=== PATIENT | female | born 1945 | race Caucasian/White ===

== ENCOUNTER 2019-04-18 18:27 | Inpatient (IN) | payer MEDICARE, BC, SELFPAY ==
[2019-04-18] VITALS (18 sets, daily range): BP systolic 109–210; BP diastolic 53–86; PULSE 75–133; RESP 14–40; TEMP 36–36.4; O2SAT 89–100; BMI 30.2; BMI 30.3; BMI 30.5
--- NOTE | 2019-04-18 18:35 | EKG12_ITS ---
Test Reason : SOB Blood Pressure : / mmHG Vent. Rate : 117 BPM Atrial Rate : 117 BPM P-R Int : 160 ms QRS Dur : 094 ms QT Int : 328 ms P-R-T Axes : 052 001 113 degrees QTc Int : 457 ms Sinus tachycardia Possible Left atrial enlargement Left ventricular hypertrophy with repolarization abnormality Abnormal ECG Confirmed by PAT NOWAK ([id number]), news videotape editor CUCO CARRION ([id number]) on 04/23/2019 1:29:06 PM Referred By: Leo Llamas Confirmed By:PAT NOWAK
--- NOTE | 2019-04-18 18:36 | ED.VIS.DYS ---
History of Present Illness Chief Complaint: Shortness of Breath Informant: Patient, EMS Onset: Hours - 1, sudden onset Activity at onset: Rest - sitting down for dinner Timing: Continuous Quality: - - sob Current Severity: Severe Maximum Severity: Severe Worsened by: Exertion Relieved by: Nothing Associated Symptoms: Negative for: Cough Chest Pain: None Narrative: Patient has a history of COPD on 2 L nasal cannula at home, congestive heart failure, chronic renal failure on dialysis. She was dialyzed last yesterday, she has been compliant with her dialysis. She had sudden onset of shortness of breath today with no other acute or new symptoms, she states this is happened before when they have not taken off enough fluid at dialysis. She denies any chest discomfort or worsening of her chronic lower extremity edema. - Past Medical History (1) COPD (chronic obstructive pulmonary disease) Status: Chronic (2) CHF (congestive heart failure) Status: Chronic (3) CKD (chronic kidney disease) requiring chronic dialysis Status: Chronic Past Medical History - Allergies and Home Meds Allergies/Adverse Reactions: Allergies haloperidol [From Haldol] Adverse Reaction (Verified 04/18/19 18:28) Unknown ondansetron [From Zofran] Adverse Reaction (Verified 04/18/19 18:28) Vomiting Primary Care Physician: Evelio Carranza Chi, MD [Primary Care Provider] - Review of Systems ROS: Unable to Obtain - Omitted due to acuity General: Reports: Malaise. Denies: Chills, Fever, Sweats Eyes: Denies: Visual changes - bilaterally, Diplopia ENT: Denies: Rhinorrhea, Sore throat Cardiovascular: Denies: Chest pain, Palpitations, Heart racing Respiratory: Reports: Dyspnea. Denies: Cough, Sputum Gastrointestinal: Denies: Abdominal pain, Nausea, Vomiting, Diarrhea, Melena, Hematochezia Musculoskeletal: Reports: Swelling - Bilateral lower extremity, unchanged. Denies: Neck pain, Extremity Pain Neurological: Denies: Headache, Weakness, Numbness Physical Exam Vital Signs/Narrative: Vital Signs Temp Pulse Resp BP Pulse Ox 04/18/19 18:32 132 H 30 H 94 04/18/19 18:29 97.5 F L 133 H 40 H 210/86 H 89 Inital Vital Signs reviewed: Yes General: Well nourished, Well developed, Acute Distress - Acute respiratory distress, able to speak in 1-3 word sentences Head: Normocephalic, Atraumatic Eyes: Perrl, EOMI ENT: Moist mucous membranes, No rhinorrhea Neck: Supple, Nontender, No lymphadenopathy, No JVD Cardiovascular: Regular rate, Regular rhythm, Tachycardia Respiratory: Chest nontender, Rales - Right base, Diminished - Throughout, symmetrically Abdomen: Soft, Nontender, Nondistended, Normal bowel sounds Back: Nontender, Normal Inspection Extremities: Nontender, Edema - 1-2+ bilateral lower extremity, symmetric. Negative for: Calf Tenderness Skin: Normal color, No rash, No Trauma Neurological: Alert, Oriented x3, Cranial nerves II-XII grossly intact, Normal Strength, Normal Sensation Psychological: Normal affect, Normal Mood Diagnostic/Tx/Re-eval - Rhythm Strip Rhythm Strip: Sinus Tach Rate: 117 Ectopy: None - EKG Initial EKG Interpretation: No Acute Injury Pattern, Sinus Tachycardia, Inverted T-Waves - laterally w/ 1mm or less of STD, consistent with LV strain Prior: No Prior Treatment - Dyspnea: Oxygen, Albuterol, - - Bipap Repeat Evaluation: Improved - significantly - Medical Decision Making On BiPAP, patient was much improved. With observation on BiPAP, she continues to tolerate it and have improvement in her breathing to almost a normal state. I think she should be admitted with the BiPAP on. ABG shows no CO2 retention. She does have asymmetric wet breath sounds in the right base, and chest x-ray shows more prominent airspace disease on the right more consistent with pneumonia although her symptoms are more consistent with acute pulmonary edema. Given that BiPAP and topical nitroglycerin are working well to decrease her blood pressure and her effort of breathing I do not think she needs emergent dialysis especially since she has been compliant with it and was dialyzed yesterday. Discussed with hospitalist for ICU admission. He requests a CTA of the chest to rule out pulmonary embolus which is ordered. Blood cultures were obtained, antibiotics are ordered. She will not be given IV fluid bolus because of the possibility of pulmonary edema here along with scarring of the lungs which may make x-ray and clinical right-sided worsening seem more apparent. Additionally, with her kidney failure and congestive heart failure, fluid could make her worse. Critical care time (excluding procedures): 30-74 minutes - 35 minutes, including time spent discussing with patient, family/HC POA, consultants, arranging admission, and performing direct patient care at bedside ED Disposition - Plan for ED Patient: Disposition: Acute Care Hospital [facility] Diagnosis: Sepsis with acute hypoxic respiratory failure, Pneumonia, CHF (congestive heart failure), CKD (chronic kidney disease) requiring chronic dialysis, COPD (chronic obstructive pulmonary disease) Referrals: Evelio Carranza Chi, MD [Primary Care Provider] -
--- NOTE | 2019-04-18 18:40 | RAD_ITS ---
STUDY: X-RAY CHEST REASON FOR EXAM: Female, 74 years old. Shortness of breath TECHNIQUE: AP portable upright chest COMPARISON: None. FINDINGS: Hazy opacities of the right mid to lower lung pattern suggesting acute pneumonia. No apparent focal consolidation. Right apical lung clear. Left lung clear. No apparent effusion or pneumothorax. Mild cardiomegaly. Unremarkable mediastinal silhouette, rashida and pleural margins. No acute osseous or upper abdominal process. RAD/Chest 1 View (Portable) IMPRESSION: Hazy right lower lobe infiltrates most consistent with acute pneumonia. Electronically Signed: Edgardo Mcneil MD at 19:16 EDT Tel , Service support ,
[2019-04-18 18:43] LABS: Absolute Lymphocyte Count 1.86 X10^3/uL (0.83-4.51); Absolute Neutrophil Count 6.4 X10^3/uL (2.0-7.7); Basophil# 0.02 X10^3/uL; Basophil% 0.2 % (0-1); Eosinophils% 2.2 % (0-5); Hematocrit 36.9 % (37-47); Hemoglobin 11.5 g/dL (12.0-15.0); Lymphocyte # 1.86 X10^3/ul (4.0); Lymphocyte % 20.5 % (19-41); Mean Corp Hgb Conc 31.2 g/dL (32-36); Mean Corpuscular Hgb 31.3 pg (27.0-32.0); Mean Corpuscular Volume 100.3 fL (81-99); Mean Platelet Vol. 10.9 fl (6.2-12.0); Monocyte# 0.53 X10^3/uL; Monocyte% 5.8 % (0-10); NRBC Flagged by Analyzer 0.3 % (0-5); Neutrophil # 6.38 X10^3/uL (2.7-7.7); Neutrophil % 70.2 % (47-70); Platelet Count 285 K/mm3 (150-450); RBC Distribution Width CV 17.3 % (11.6-14.6); RBC Distribution Width SD 63.6 fl (35.1-43.9); Red Blood Count 3.68 M/mm3 (4.2-5.4); White Blood Count 9.1 K/mm3 (4.4-11.0)
[2019-04-18] MEDS: Albuterol 2.5 MG/3 ML VIAL.NEB. INHALATION (18:45)
[2019-04-18] MEDS: Nitroglycerin Oint 1 INCH PACKET TRANSDERM. (18:47)
[2019-04-18 18:48] LABS: Prothrombin Time (Protime)PT. 13.3 SECONDS (11.7-14.9)
[2019-04-18 18:52] LABS: Partial Thromboplast Time 25.1 Seconds (24.1-36.2)
[2019-04-18 19:02] LABS: ALB/GLOB Ratio 0.9 RATIO (0.9-2.4); AST(SGOT) 23 U/L (15-37); Alanine Aminotransfer ALT/SGPT 21 U/L (13-56); Albumin, Serum 3.6 g/dL (3.2-5.0); Alkaline Phosphatase 157 U/L (45-117); Anion Gap 10 (5-15); BUN 32 mg/dL (7-18); BUN/Creat Ratio 5.9 RATIO (10-20); Calcium,Total 8.7 mg/dL (8.5-10.1); Chloride 96 mmol/L (98-107); Creatinine, Serum 5.42 mg/dL (0.55-1.02); EST Glomerular Filtration Rate 8 mL/min (>60); Est Glom Filt Rate - Afr Amer 10 mL/min (>60); Estimated Creatinine Clearance 6.44 ml/min; Globulin 3.9 g/dL (2.2-4.2); Glucose 366 mg/dL (74-106); Potassium 4.9 mmol/L (3.5-5.1); Protein, Total 7.5 g/dL (6.4-8.2); Sodium Level 135 mmol/L (136-145)
[2019-04-18 19:06] LABS: Bedside Glucose 384 mg/dL (70-110)
[2019-04-18 19:10] LABS: Allen Test POS; Base Excess 5 mmol/L (-2 to +2); Bicarbonate 29.2 mmol/L (22-26); Blood Gas Specimen Type ART; EPAP 6; FI02 50; IPAP 14; PO2 74 mmHG (75-100); RR 14; SITE R Radial; SO2 95 % (95-99); Time Given 1900; Total Carbon Dioxide 30 mmol/L; pCO2 44.6 mmHg (35-45); pH 7.42 (7.35-7.45)
--- NOTE | 2019-04-18 19:51 | HP.PCM_ITS ---
Problem List (1) Sepsis Status: Acute (2) Pneumonia Status: Acute History of Present Illness Date of Admission: 04/18/19 Chief Complaint: shortness of breath The patient is a 74 year old F who lives at an assisted nursing facility and with a significant history of COPD; CHF; diabetes mellitus who presented to the emergency department with sudden onset severe shortness of breath that started about an hour to presentation. Patient denies any coughing. Her last dialysis was a day before presentation. Emergent department doctor reported that patient symptoms was reminiscent of a previous episode where enough fluid was not taken off on patient. However patient reported that enough fluid was taken out during dialysis. Chest x-ray at the emergency department showed haziness in the right lower lobe infiltrate most consistent for acute pneumonia. Patient was noted to have tachycardia and tachypnea. Enroute to the emergency department patient was placed on CPAP. In the emergency department patient was placed on BiPAP. Patient reports increased swelling in bilateral lower extremities that has increased x1 day. Past Medical History Past Medical History (Chronic Problems): Chronic Problems COPD (chronic obstructive pulmonary disease) (Chronic) CHF (congestive heart failure) (Chronic) CKD (chronic kidney disease) requiring chronic dialysis (Chronic) Allergies haloperidol [From Haldol] Adverse Reaction (Verified 04/18/19 18:28) Unknown ondansetron [From Zofran] Adverse Reaction (Verified 04/18/19 18:28) Vomiting Home Medications: Ambulatory Orders Medication Instructions Recorded Acetaminophen [Tylenol] 650 mg PO BID 04/18/19 Albuterol IH (ProAir) [Proair Hfa 1 - 2 puff INHALATION Q6H PRN PRN 04/18/19 (SP)Vent Pts] Budesonide/Formoterol 160/4.5 2 puff INHALATION BID PRN 04/18/19 [Symbicort 160/4.5 Mcg Inhaler (SP)] Calcium Acetate [Phoslo Gel Cap] 667 mg PO TIDCM 04/18/19 Clonidine HCl [Catapres] 0.1 mg PO BID 04/18/19 DiphenhydrAMINE [Benadryl] 25 mg PO BID 04/18/19 Docusate Sodium [Colace] 100 mg PO BID 04/18/19 Furosemide [Lasix] 80 mg PO DAILY 04/18/19 Insulin Glargine,Hum.rec.anlog 16 unit SQ QHS 04/18/19 [Lantus] Insulin Lispro [Humalog] 0 unit SQ ACHS 04/18/19 Insulin Lispro [Humalog] 6 unit SQ TIDCM 04/18/19 Nifedipine [Nifedipine ER] 30 mg PO DAILY 04/18/19 Omeprazole 40 mg PO DAILY 04/18/19 Pravastatin [Pravachol] 20 mg PO QHS 04/18/19 Sevelamer HCl [Renagel] 1,600 mg PO TIDCM 04/18/19 hydrALAZINE [Apresoline] 100 mg PO TID 04/18/19 Surgical History: no surgical history Lives: Snf Smoking Status: Former smoker - She quit about 10 days ago Tobacco Use: Cigarettes Alcohol: None - *Family History Maternal History Items: Diabetes, Heart Disease - CHF Paternal History Items: - - Patient does not know Review of Systems Constitutional: Denies: Chills, Fever, Weight Change HEENT: Denies: Head Aches, Sinus Congestion, Sinus Drainage Cardiovascular: Reports: Edema - bilateral lower legs. Denies: Chest Pain, Palpitations Respiratory: Reports: Shortness of Breath. Denies: Cough Gastrointestinal: Denies: Abdominal Pain, Nausea, Vomiting Genitourinary: Denies: Dysuria Musculoskeletal: Denies: Joint Pain, Joint Tenderness Skin: Denies: Rash, Wounds Neurological: Denies: Numbness, Tingling, Focal weakness Psychiatric: Denies: Anxiety, Depression, Homicidal Ideations, Suicidal Ideations Hematologic/ Lymphatic: Denies: Easy Bruising, Easy Bleeding VTE Information - Inpt Only VTE Present on Admission: No VTE Mechan Device Prophylaxis: None VTE Pharm Prophylaxis ordered?: Yes Patient Problems: Active and Suspected Problems Sepsis with acute hypoxic respiratory failure (Acute) Pneumonia (Acute) Sepsis (Acute) - Physical Exam General: Alert, Oriented x3, Cooperative, - - Patient was on BiPAP at the time of examination HEENT: Atraumatic, PERRLA, EOMI, Normocephalic Neck: Supple, No JVD, Negative Carotid Bruits Lungs: Rales - Right base, Tachypneic Cardiovascular: Normal S1, Normal S2, Tachycardic Abdomen: Bowel Sounds Present, Soft, Non Tender Extremities: No edema, Capillary Refill Less than 3 Seconds Skin: No rashes, No breakdown, - - Hematoma in dorsal right arm that she attributes to IV attempt. Musculoskeletal: No Tenderness to Palpation of Joints or Extremities Neurological: Cranial nerves II-XII grossly intact Psych/Mental Status: Normal Affect, Appropriate Vital Signs Temp Pulse Resp BP Pulse Ox 97.3 F L 112 H 28 H 109/77 96 04/18/19 19:08 04/18/19 19:03 04/18/19 19:03 04/18/19 19:03 04/18/19 19:03 Oxygen Flow Rate (L/min) 15 Oxygen Delivery Method Bi-pap Weight: 70.3 kg Body Mass Index (BMI) 30.2 Laboratory Tests Past 24 Hrs 04/18/19 04/18/19 04/18/19 18:30 18:30 18:30 WBC 9.1 RBC 3.68 L Hgb 11.5 L Hct 36.9 L MCV 100.3 H MCH 31.3 MCHC 31.2 L RDW Std Deviation 63.6 H RDW Coeff of Tanner 17.3 H Plt Count 285 MPV 10.9 Immature Gran % (Auto) 1.100 H Neut % (Auto) 70.2 H Lymph % (Auto) 20.5 [place] % (Auto) 5.8 Eos % (Auto) 2.2 Baso % (Auto) 0.2 Absolute Neuts (auto) 6.4 Absolute Lymphs (auto) 1.86 Nucleated RBC % 0.3 PT 13.3 INR 1.0 APTT 25.1 Specimen Type Sample Site pH Bicarbonate Actual POC Total CO2 Base Excess O2 Saturation O2 % ABG pCO2 ABG pO2 Jose David Test Respiration Rate O2 Delivery Device EPAP IPAP Blood Gas Notified Whom Blood Gas Notified Time Sodium 135 L Potassium 4.9 Chloride 96 L Carbon Dioxide 29.0 Anion Gap 10 BUN 32 H Creatinine 5.42 H Estim Creat Clear Calc 6.44 Est GFR (MDRD) Af Amer 10 L Est GFR (MDRD) Non-Af 8 L BUN/Creatinine Ratio 5.9 L Glucose 366 H Lactic Acid Calcium 8.7 Total Bilirubin 0.40 AST 23 ALT 21 Alkaline Phosphatase 157 H Troponin I < 0.015 Total Protein 7.5 Albumin 3.6 Globulin 3.9 Albumin/Globulin Ratio 0.9 04/18/19 04/18/19 18:55 19:02 WBC RBC Hgb Hct MCV MCH MCHC RDW Std Deviation RDW Coeff of Tanner Plt Count MPV Immature Gran % (Auto) Neut % (Auto) Lymph % (Auto) [place] % (Auto) Eos % (Auto) Baso % (Auto) Absolute Neuts (auto) Absolute Lymphs (auto) Nucleated RBC % PT INR APTT Specimen Type ART Sample Site R Radial pH 7.42 Bicarbonate Actual 29.2 H POC Total CO2 30 Base Excess 5 H O2 Saturation 95 O2 % 50 ABG pCO2 44.6 ABG pO2 74 L Jose David Test POS Respiration Rate 14 O2 Delivery Device Bi / C PAP EPAP 6 IPAP 14 Blood Gas Notified Whom ED Blood Gas Notified Time 1900 Sodium Potassium Chloride Carbon Dioxide Anion Gap BUN Creatinine Estim Creat Clear Calc Est GFR (MDRD) Af Amer Est GFR (MDRD) Non-Af BUN/Creatinine Ratio Glucose Lactic Acid Pending Calcium Total Bilirubin AST ALT Alkaline Phosphatase Troponin I Total Protein Albumin Globulin Albumin/Globulin Ratio POC Glucose 04/18/19 18:47 POC Glucose 384 H Assessment/Plan All Active Problems Sepsis with acute hypoxic respiratory failure (Acute) Pneumonia (Acute) Sepsis (Acute) The patient is a 74 year old F who lives at an assisted nursing facility and with a significant history of COPD; CHF; diabetes mellitus who presented to the emergency department with sudden onset severe shortness of breath; and found to meet SIRS criteria of tachycardia and tachypnea and with radiographic evidence of right lower lobe infiltrate consistent with probable sepsis secondary to community-acquired pneumonia. Sepsis second committee acquired pneumonia Lactic acid: 1.2 RR ~28 and labored Tachycardia heart rate of 112 Blood culture ?2 is pending Chest x-ray: Hazy right lower lobe infiltrate most consistent with acute pneumonia. Chest x-ray was independently reviewed. I agree with radiologist interpretation. Patient is not coughing so did not order respiratory Gram stain and culture pending Antibiotics: Was started on vancomycin and Zosyn from the ED. Continue vancomycin; pharmacy to dose. Of note patient is a dialysis patient. Zosyn continued. MRSA of nares ordered Albuterol as needed Legionella antigen screen and Strep antigen ordered Because of sudden onset of shortness of breath PE is on the differential. HeR CXR haziness could be due to pulmonary infection. CTPA ordered at the ED. Congestive heart failure. Patient does not appear to have overt fluid overload. No edema noted in extremities Fluid restriction of 1500 mL's daily 2 g cardiac diet as well as diabetic and renal diet. End-stage renal disease on dialysis Patient is on dialysis Tuesday and Tuesday. She is not anuric. Nephrology consult Renal diet as well as diet diabetic and cardiac diet with fluid restriction. COPD Does not appear to be COPD exacerbation since patient is not wheezy and then she is not tight. She has Rales on the right base. Scheduled DuoNeb ordered. PRN albuterol ordered. No wheezes so steroids were not started. Patient currently on BiPAP. Diabetes mellitus On presentation her blood glucose was not within goal. Basal prandial and correction scale insulin continued Accu-Chek q. CHS and 2 AM. Hypertension On presentation her blood pressure was not within goal Catapres; hydralazine p.o.; Lasix; and nifedipine continued. PRN hydralazine IV added. Of note her heart rate has improved. Trend blood pressure and adjust blood pressure medication Tobacco abuse: Reportedly she quit smoking on April 09, 2019 when she went to an assisted living. Smoking cessation discussed. DVT prophylaxis subcutaneous Lovenox ordered Code Visit Inpatient E&M: 77323 Init Hosp L3
[2019-04-18 19:55] LABS: Lactic Acid 1.2 mmol/L (0.4-2.0)
--- NOTE | 2019-04-18 19:56 | CT_ITS ---
STUDY: CTA CHEST REASON FOR EXAM: Female, 74 years old. Respiratory failure RADIATION DOSAGE (If Supplied By Facility): CTDIvol = ( 9.93 ) mGy, DLP = ( 351.75 ) mGycm TECHNIQUE: The examination was performed with the intravenous administration of 75ML IV Isovue 370. Post-processing of the angiographic images was performed, with multiplanar reformation and 3D reconstruction. Individualized dose optimization techniques were used for this CT. COMPARISON: None. FINDINGS: Normal enhancement of the main pulmonary artery and right and left pulmonary arteries. Normal enhancement of the bilateral peripheral pulmonary arteries. There is no demonstrated pulmonary embolism. Normal thoracic aorta and visualized great vessels. There is no demonstrated aortic dissection. Normal heart and pericardium. Normal mediastinum. Normal hilar regions. Normal visualized trachea and bronchi. 7 mm left lower lobe nodule on image 68 of series 2. Extensive alveolitis throughout the right lung. Normal pleura. Normal chest wall structures. Multiple round well-defined low-density lesions in the thoracic spine. These are most likely Schmorl's nodes, although correlate clinically for sequelae of hyperparathyroidism. Cholecystectomy. CT/CTA Chest W/WO Contrast IMPRESSION: No pulmonary embolus. Extensive alveolitis throughout the right lung. 7 mm left lower lobe nodule. Based on the 2017 Fleischner Society Guidelines for Management of Incidentally Detected Pulmonary Nodules, for a single solid lung nodule 6-8mm in size: * If patient is considered low risk for developing lung cancer, follow-up CT at 6-12 months is recommended, then consider CT at 18-24 months. * If patient is considered high risk, follow-up CT at 6-12 months is recommended, then again at 18-24 months. Electronically Signed: Shravan Little MD at 20:58 EDT Tel , Service support ,
[2019-04-18] MEDS: Vancomycin IV 1,000 MG/200 ML BAG 200 MG IV (21:08)
[2019-04-18] MEDS: Enoxaparin 30 MG/0.3 ML Syringe SC (22:10)
[2019-04-18] MEDS: Acetaminophen 325 MG Tablet 650 MG PO (22:15)
[2019-04-18] MEDS: DiphenhydrAMINE 25 MG Capsule PO (22:15)
[2019-04-18] MEDS: Docusate Sodium 100 MG Capsule PO (22:15)
[2019-04-18] MEDS: cloNIDine HCl 0.1 MG Tablet PO (22:15)
[2019-04-18] MEDS: Insulin Lispro 100 UNIT/ML INSULN.PEN SC (22:15)
[2019-04-18 22:16] LABS: Bedside Glucose 398 mg/dL (70-110)
[2019-04-18] MEDS: hydrALAZINE 50 MG Tablet 100 MG PO (22:16)
[2019-04-18] MEDS: 0.9% NaCl Peripheral Flush Adult/Peds IV (22:23)
--- NOTE | 2019-04-18 23:08 | NURSING ---
Pt. tolerated a break off of bipap on 2L NC well to take night meds. No SOB and pt. resting comfortably.
--- NOTE | 2019-04-18 23:50 | PCM.RX.CS ---
Consult Pharmacy has been consulted to manage selected antiobiotic: Vancomycin Type of Consult: New start Suspected Infection: Sepsis, Pneumonia Prior Doses of Antibiotics Received/Current Regimen: Medications Discontinued Medications Vancomycin HCl (Vancomycin) 1,000 mg in 200 mls @ 200 mls/hr IV X1 ONE Stop: 04/18/19 20:29 Last Admin: 04/18/19 21:08 Dose: 200 mls/hr Labs: Sodium 135 mmol/L (136-145) L 04/18/19 18:30 Potassium 4.9 mmol/L (3.5-5.1) 04/18/19 18:30 Chloride 96 mmol/L (98-107) L 04/18/19 18:30 Carbon Dioxide 29.0 mmol/L (21.0-32.0) 04/18/19 18:30 10 (5-15) 04/18/19 18:30 BUN 32 mg/dL (7-18) H 04/18/19 18:30 5.42 mg/dL (0.55-1.02) H 04/18/19 18:30 Est GFR (MDRD) Af Amer 10 mL/min (>60) L 04/18/19 18:30 Est GFR (MDRD) Non-Af 8 mL/min (>60) L 04/18/19 18:30 5.9 RATIO (10-20) L 04/18/19 18:30 Glucose 366 mg/dL (74-106) H 04/18/19 18:30 Microbiology: Microbiology 04/18/19 22:50 Urine, Clean Catch Streptococcus pneumoniae Antigen (M - Final 04/18/19 22:50 Urine, Clean Catch Legionella Antigen - Final Weight used for dosin.6 kg Estimated Creatinine Clearance: 6.44 Goal Trough: 10-15 mcg/mL Pharmacy Plan for Drug Dosing: Initial vancomycin dose was given in ED 04/18/19 @2108. Subsequent doses will be given post-dialysis. Pharmacy will verify with RN if/when dialysis is due to be given next. Pharmacy Service will continue to monitor and adjust dosing as required.
[2019-04-19] VITALS (13 sets, daily range): BP systolic 146–172; BP diastolic 49–56; PULSE 62–82; RESP 14–22; TEMP 36.1–37.2; O2SAT 96–100
[2019-04-19 00:23] LABS: M R Staph aureus DNA By PCR Negative (Negative); Probe Check PASS; Specimen Processing Control PASS
[2019-04-19 03:26] LABS: Bedside Glucose 63 mg/dL (70-110)
[2019-04-19 03:29] LABS: Absolute Lymphocyte Count 1.27 X10^3/uL (0.83-4.51); Absolute Neutrophil Count 6.9 X10^3/uL (2.0-7.7); Basophil# 0.01 X10^3/uL; Basophil% 0.1 % (0-1); Eosinophil# 0.08 X10^3/uL; Eosinophils% 0.9 % (0-5); Hemoglobin 8.8 g/dL (12.0-15.0); Lymphocyte # 1.27 X10^3/ul (4.0); Lymphocyte % 14.4 % (19-41); Mean Corp Hgb Conc 31.4 g/dL (32-36); Mean Corpuscular Hgb 31.2 pg (27.0-32.0); Mean Corpuscular Volume 99.3 fL (81-99); Mean Platelet Vol. 10.4 fl (6.2-12.0); Monocyte# 0.53 X10^3/uL; NRBC Flagged by Analyzer 0.3 % (0-5); Neutrophil # 6.88 X10^3/uL (2.7-7.7); Neutrophil % 78.4 % (47-70); Platelet Count 185 K/mm3 (150-450); RBC Distribution Width CV 17.3 % (11.6-14.6); RBC Distribution Width SD 62.2 fl (35.1-43.9); Red Blood Count 2.82 M/mm3 (4.2-5.4); White Blood Count 8.8 K/mm3 (4.4-11.0)
[2019-04-19 03:46] LABS: Anion Gap 10 (5-15); BUN 38 mg/dL (7-18); BUN/Creat Ratio 6.5 RATIO (10-20); Calcium,Total 8.2 mg/dL (8.5-10.1); Chloride 97 mmol/L (98-107); Creatinine, Serum 5.83 mg/dL (0.55-1.02); EST Glomerular Filtration Rate 8 mL/min (>60); Est Glom Filt Rate - Afr Amer 9 mL/min (>60); Estimated Creatinine Clearance 9.03 ml/min; Glucose 69 mg/dL (74-106); Potassium 4.7 mmol/L (3.5-5.1); Sodium Level 138 mmol/L (136-145)
[2019-04-19 04:01] LABS: Bedside Glucose 91 mg/dL (70-110)
[2019-04-19] MEDS: hydrALAZINE 50 MG Tablet 100 MG PO (05:13)
--- NOTE | 2019-04-19 05:22 | NURSING ---
Pt. transferred to [facility] w/RN. Report given to Yandy MADRID.
--- NOTE | 2019-04-19 05:43 | NURSING ---
Called pt's son Hunter to let him know the pt. moved to [facility]. Noted.
[2019-04-19] MEDS: Budesonide Respules 0.5 MG/2 ML AMPUL.NEB. INHALATION (06:52)
[2019-04-19] MEDS: Ipratropium/Albuterol Sulfate 3 ML AMPUL.NEB INHALATION (06:53)
[2019-04-19 08:26] LABS: Bedside Glucose 157 mg/dL (70-110)
[2019-04-19] MEDS: Furosemide 80 MG Tablet PO (08:52)
[2019-04-19] MEDS: Docusate Sodium 100 MG Capsule PO (08:53)
[2019-04-19] MEDS: DiphenhydrAMINE 25 MG Capsule PO (08:53)
[2019-04-19] MEDS: Pantoprazole Sodium 40 MG Tablet PO (08:53)
[2019-04-19] MEDS: SEVELAMER CARBONATE 800 MG TABLET 1600 MG PO ×2 (08:53→12:34)
[2019-04-19] MEDS: NIFEdipine 30 MG Tablet PO (08:53)
[2019-04-19] MEDS: Calcium Acetate 667 MG Capsule PO ×2 (08:53→12:34)
[2019-04-19] MEDS: Acetaminophen 325 MG Tablet 650 MG PO (08:53)
[2019-04-19] MEDS: Enoxaparin 30 MG/0.3 ML Syringe SC (08:53)
[2019-04-19] MEDS: Insulin Lispro 100 UNIT/ML INSULN.PEN SC (08:54)
[2019-04-19] MEDS: Insulin Lispro 100 UNIT/ML INSULN.PEN 6 UNIT SC ×2 (08:55→12:33)
[2019-04-19] MEDS: cloNIDine HCl 0.1 MG Tablet PO (08:55)
[2019-04-19 09:41] LABS: Iron 51 ug/dL (50-170); Iron Binding Capacity,Total 160 ug/dL (250-450); PERCENT IRON SATURATION 31.9 % (15.0-55.0)
[2019-04-19 09:48] LABS: Vitamin B12 399 pg/mL (211-911)
--- NOTE | 2019-04-19 10:41 | CASEMGMT ---
SW spoke with patient and confirmed she is from [facility]. She plans to return and her family will transport her. SHARDA called [facility] and spoke with Kranthi Hammonds (pricing intern?) He said patient has been there for about a week. He said it is no problem if patient returns on O2. SHARDA told her SW will keep them updated. [facility] phone number: [phone] and fax number: [phone]. Patient resides in the [place] [facility]. Updates faxed to [facility]. Merle ASHLEY MSW
[2019-04-19] MEDS: 0.9% NaCl IVPB Med Flush (250 mL) 15 ML IV (10:42)
[2019-04-19] MEDS: 0.9% NaCl Peripheral Flush Adult/Peds IV (10:43)
--- NOTE | 2019-04-19 11:27 | CASEMGMT ---
Addendum entered by Chelo Hopkins 04/19/19 13:17: [facility] is aware that pt will be dialyzed here and then discharged back to NH, voice understanding. Aiden MADRID CM Addendum entered by Chelo Hopkins 04/19/19 11:55: Dialysis nurse is here to dialyze pt at this time. Aiden MADRID CM Original Note: Call to Kranthi at [facility] and he states that pt has dialysis T,Th,Sat early afternoon at [facility]. Call to [facility] and they state that pt's scheduled time is 1230 and that they could not take her any time after that. Call to pt's son to see if he could transport pt there by that time and he states that he is currently at work in [place] and would not be able to get here in time to get pt up there by 1230. Jackie balbuena RN and Johana ZEE aware, voice understanding and pt will have to have dialysis here prior to discharge. Son states he will pick pt up after dialysis and take her home. Renita MADRID was aware to notify pt's son when dialysis arrived, voiced understanding. Aiden MADRID CM
[2019-04-19 11:40] LABS: Bedside Glucose 148 mg/dL (70-110)
--- NOTE | 2019-04-19 11:42 | DCINST_ITS ---
- Discharge Diagnoses Current Active Problems: Current Active and Chronic Problems COPD (chronic obstructive pulmonary disease) (Chronic) CHF (congestive heart failure) (Chronic) CKD (chronic kidney disease) requiring chronic dialysis (Chronic) Sepsis with acute hypoxic respiratory failure (Acute) Pneumonia (Acute) Sepsis (Acute) You will use the following diet at home:: Cardiac, Renal (restricted protein/sodium) Your food should be the consistency of: Regular Your liquids should be the consistency of: Regular/Thin Discharge Activity: Return to Normal Activity Allergies/Adverse Reactions: Allergies haloperidol [From Haldol] Adverse Reaction (Verified 04/18/19 18:28) Unknown ondansetron [From Zofran] Adverse Reaction (Verified 04/18/19 18:28) Vomiting Medications to take at Discharge Acetaminophen [Tylenol] 650 mg PO BID 04/18/19 Albuterol IH (ProAir) [Proair Hfa] 1 - 2 puff INHALATION Q6H PRN PRN 04/18/19 Budesonide/Formoterol 160/4.5 [Symbicort 160/4.5 Mcg Inhaler (SP)] 2 puff INHALATION BID PRN 04/18/19 Calcium Acetate [Phoslo Gel Cap] 667 mg PO TIDCM 04/18/19 Clonidine HCl [Catapres] 0.1 mg PO BID 04/18/19 DiphenhydrAMINE [Benadryl] 25 mg PO BID 04/18/19 Docusate Sodium [Colace] 100 mg PO BID 04/18/19 Furosemide [Lasix] 80 mg PO DAILY 04/18/19 Insulin Glargine,Hum.rec.anlog [Lantus] 16 unit SQ QHS 04/18/19 Insulin Lispro [Humalog] 0 unit SQ ACHS 04/18/19 Insulin Lispro [Humalog] 6 unit SQ TIDCM 04/18/19 Nifedipine [Nifedipine ER] 30 mg PO DAILY 04/18/19 Omeprazole 40 mg PO DAILY 04/18/19 Pravastatin [Pravachol] 20 mg PO QHS 04/18/19 Sevelamer HCl [Renagel] 1,600 mg PO TIDCM 04/18/19 Primary Care Physician: Evelio Carranza Chi, MD [Primary Care Provider] - Please follow up with your Primary Care Physician in: 2 weeks Test Results: Test results from this visit will be discussed in further detail at your follow- up appointment, if applicable. Please Follow Up With: Audra Soliz NP-C When: 2 weeks Please Follow Up With: Nephrology When: As directed Proposed Discharge Date: 04/19/19
--- NOTE | 2019-04-19 11:50 | CASEMGMT ---
Updates were faxed to [facility]. SW also wrote on the fax face sheet that patient will be discharged today after dialysis. RN Margaux CADENA spoke with patient's son and he is aware of above and he will transport her back. Plan: d/c back to [facility] [place]. Son will transport Merle ARANA
--- NOTE | 2019-04-19 12:00 | CON.PCM_ITS ---
Problem List (1) ESRD (end stage renal disease) Status: Acute Consultation - Renal 04/19/19 PCP/ Referring MD: Requesting physician: ESRD Primary care physician: Evelio Carranza MD Reason for Consultation:: esrd - History of Present Illness History of Present Illness: The patient is a 74 year old F admitted with dyspnea. Renal consulted for ESRD. ESRD on HD TTS schedule. last HD was Tuesday. came in with dyspnea. found to have Pneuminia/ground glass opacities on CT chest. received abx for one day. feels better already. Access is left arm AVG. primary certified alcohol counselor is Dr Vicente. Goes to [facility] in [place]. Lives in assisted living facility, - Allergies Allergies: Allergies haloperidol [From Haldol] Adverse Reaction (Verified 04/18/19 18:28) Unknown ondansetron [From Zofran] Adverse Reaction (Verified 04/18/19 18:28) Vomiting - Current Medications Current Medications: Current Medications Acetaminophen (Tylenol) 650 mg PO BID [facility] Last Admin: 04/19/19 08:53 Dose: 650 mg Documented by: Albuterol Sulfate (Ventolin Aerosols) 2.5 mg INHALATION Q2H PRN PRN PRN Reason: SOB/Wheezing Albuterol/Ipratropium (Duoneb) 3 ml INHALATION Q6HWA.RT [facility] Last Admin: 04/19/19 06:53 Dose: 3 ml Documented by: Budesonide (Pulmicort Aerosol) 0.5 mg INHALATION Q12H.RT [facility] Last Admin: 04/19/19 06:52 Dose: 0.5 mg Documented by: Calcium Acetate (Phoslo Gel Cap) 667 mg PO TIDCM [facility] Last Admin: 04/19/19 08:53 Dose: 667 mg Documented by: Clonidine (Catapres) 0.1 mg PO BID [facility] Last Admin: 04/19/19 08:55 Dose: 0.1 mg Documented by: Dextrose (D50w Syringe) 0 gm IV X1 PRN; Protocol PRN Reason: Hypoglycemia Diphenhydramine HCl (Benadryl) 25 mg PO BID [facility] Last Admin: 04/19/19 08:53 Dose: 25 mg Documented by: Docusate Sodium (Colace) 100 mg PO BID [facility] Last Admin: 04/19/19 08:53 Dose: 100 mg Documented by: Enoxaparin Sodium (Lovenox) 30 mg SC DAILY@1000 [facility] Last Admin: 04/19/19 08:53 Dose: 30 mg Documented by: Furosemide (Lasix) 80 mg PO DAILY [facility] Last Admin: 04/19/19 08:52 Dose: 80 mg Documented by: Glucagon () 1 mg IM .X1 PRN PRN Reason: Hypoglycemia Hydralazine HCl (Apresoline) 100 mg PO TID [facility] Last Admin: 04/19/19 05:13 Dose: 100 mg Documented by: Hydralazine HCl (Apresoline Iv) 5 mg IV Q4H PRN PRN PRN Reason: SBP > 160 Sodium Chloride () 250 mls @ 15 mls/hr IV .[id number] PRN PRN Reason: SALINE FLUSH Last Admin: 04/19/19 10:42 Dose: 15 mls/hr Documented by: Piperacillin Sod/Tazobactam (Sod 3.375 gm/ Sodium Chloride) 50 mls @ 12.5 mls/hr IV Q12 [facility] Last Admin: 04/19/19 10:38 Dose: 12.5 mls/hr Documented by: Vancomycin IV Pharmacy to Dose (1,000 ea/ Sodium Chloride) 500 mls @ 250 mls/hr IV PRN PRN; Protocol Insulin Glargine (Lantus (Bkc)) 16 units SC QHS [facility] Last Admin: 04/18/19 22:10 Dose: 16 units Documented by: Insulin Human Lispro (Humalog Kwikpen (Bkc)) 0 unit SC ACHS & 3AM [facility]; Protocol Last Admin: 04/19/19 08:54 Dose: 2 units Documented by: Insulin Human Lispro (Humalog Kwikpen (Bkc)) 6 unit SC TIDAC [facility] Last Admin: 04/19/19 08:55 Dose: 6 units Documented by: Nifedipine (Procardia Xl) 30 mg PO DAILY [facility] Last Admin: 04/19/19 08:53 Dose: 30 mg Documented by: Pantoprazole Sodium (Protonix) 40 mg PO DAILY [facility] Last Admin: 04/19/19 08:53 Dose: 40 mg Documented by: Pravastatin Sodium (Pravachol) 20 mg PO QHS [facility] Last Admin: 04/18/19 23:06 Dose: Not Given Documented by: Sevelamer Carbonate (Renvela) 1,600 mg PO TIDCM [facility] Last Admin: 04/19/19 08:53 Dose: 1,600 mg Documented by: Sodium Chloride () 10 - 40 ml IV UD PRN PRN Reason: SALINE FLUSH Last Admin: 04/19/19 10:43 Dose: 10 ml Documented by: - Past Medical History Past Medical History (Chronic Problems): Chronic Problems COPD (chronic obstructive pulmonary disease) (Chronic) CHF (congestive heart failure) (Chronic) CKD (chronic kidney disease) requiring chronic dialysis (Chronic) - Past Surgical History Surgical History: no surgical history - Social History Smoking Status: Former smoker Alcohol: None - Family History Maternal History Items: Diabetes, Heart Disease - CHF Paternal History Items: - - Patient does not know Review of Systems Constitutional: Denies: Chills, Fever, Weight Change HEENT: Denies: Head Aches, Sinus Congestion, Sinus Drainage Cardiovascular: Denies: Chest Pain, Palpitations Respiratory: Denies: Cough, Shortness of breath at rest, Sputum production Gastrointestinal: Denies: Abdominal Pain, Nausea, Vomiting Genitourinary: Denies: Dysuria Musculoskeletal: Denies: Joint Pain, Joint Tenderness Skin: Denies: Rash, Wounds Neurological: Denies: Numbness, Tingling, Focal weakness Psychiatric: Denies: Anxiety, Depression, Homicidal Ideations, Suicidal Ideations Hematologic/ Lymphatic: Denies: Easy Bruising, Easy Bleeding Patient Problems: Active and Suspected Problems Sepsis with acute hypoxic respiratory failure (Acute) Pneumonia (Acute) Sepsis (Acute) ESRD (end stage renal disease) (Acute) - Physical Exam General: Alert, Oriented x3, Cooperative HEENT: Atraumatic, PERRLA, EOMI, Normocephalic Neck: Supple, No JVD, Negative Carotid Bruits Lungs: Clear to auscultation, Normal air movement Cardiovascular: Regular rate, No murmurs Abdomen: Bowel Sounds Present, Soft, Non Tender Extremities: No edema, Capillary Refill Less than 3 Seconds Skin: No rashes, No breakdown Musculoskeletal: No Tenderness to Palpation of Joints or Extremities Neurological: Cranial nerves II-XII grossly intact Psych/Mental Status: Normal Affect, Appropriate Vital Signs Temp Pulse Resp BP Pulse Ox 98.9 F 82 16 172/56 H 96 04/19/19 08:49 04/19/19 08:49 04/19/19 08:49 04/19/19 08:49 04/19/19 11:39 Oxygen Flow Rate (L/min) 2 Oxygen Delivery Method Nasal Cannula Weight: 68.7 kg Body Mass Index (BMI) 30.5 Intake and Output for Last 24 Hours 04/17/19 04/18/19 04/19/19 23:59 23:59 23:59 Intake Total 520 / 520 350 / 350 Output Total 50 / 50 Balance 470 / 470 350 / 350 Microbiology Past 72 Hours 04/18/19 22:50 Streptococcus pneumoniae Antigen (M - Final Urine, Clean Catch 04/18/19 22:50 Legionella Antigen - Final Urine, Clean Catch Laboratory Tests Past 24 Hrs 04/18/19 04/18/19 04/18/19 18:30 18:30 18:30 WBC 9.1 RBC 3.68 L Hgb 11.5 L Hct 36.9 L MCV 100.3 H MCH 31.3 MCHC 31.2 L RDW Std Deviation 63.6 H RDW Coeff of Tanner 17.3 H Plt Count 285 MPV 10.9 Immature Gran % (Auto) 1.100 H Neut % (Auto) 70.2 H Lymph % (Auto) 20.5 [place] % (Auto) 5.8 Eos % (Auto) 2.2 Baso % (Auto) 0.2 Absolute Neuts (auto) 6.4 Absolute Lymphs (auto) 1.86 Nucleated RBC % 0.3 PT 13.3 INR 1.0 APTT 25.1 Specimen Type Sample Site pH Bicarbonate Actual POC Total CO2 Base Excess O2 Saturation O2 % ABG pCO2 ABG pO2 Jose David Test Respiration Rate O2 Delivery Device EPAP IPAP Blood Gas Notified Whom Blood Gas Notified Time Sodium 135 L Potassium 4.9 Chloride 96 L Carbon Dioxide 29.0 Anion Gap 10 BUN 32 H Creatinine 5.42 H Estim Creat Clear Calc 6.44 Est GFR (MDRD) Af Amer 10 L Est GFR (MDRD) Non-Af 8 L BUN/Creatinine Ratio 5.9 L Glucose 366 H Lactic Acid Calcium 8.7 Iron TIBC Iron Saturation Total Bilirubin 0.40 AST 23 ALT 21 Alkaline Phosphatase 157 H Troponin I < 0.015 Total Protein 7.5 Albumin 3.6 Globulin 3.9 Albumin/Globulin Ratio 0.9 Vitamin B12 Folate MRSA (PCR) 04/18/19 04/18/19 04/18/19 18:55 19:02 22:25 WBC RBC Hgb Hct MCV MCH MCHC RDW Std Deviation RDW Coeff of Tanner Plt Count MPV Immature Gran % (Auto) Neut % (Auto) Lymph % (Auto) [place] % (Auto) Eos % (Auto) Baso % (Auto) Absolute Neuts (auto) Absolute Lymphs (auto) Nucleated RBC % PT INR APTT Specimen Type ART Sample Site R Radial pH 7.42 Bicarbonate Actual 29.2 H POC Total CO2 30 Base Excess 5 H O2 Saturation 95 O2 % 50 ABG pCO2 44.6 ABG pO2 74 L Jose David Test POS Respiration Rate 14 O2 Delivery Device Bi / C PAP EPAP 6 IPAP 14 Blood Gas Notified Whom ED Blood Gas Notified Time 1900 Sodium Potassium Chloride Carbon Dioxide Anion Gap BUN Creatinine Estim Creat Clear Calc Est GFR (MDRD) Af Amer Est GFR (MDRD) Non-Af BUN/Creatinine Ratio Glucose Lactic Acid 1.2 Calcium Iron TIBC Iron Saturation Total Bilirubin AST ALT Alkaline Phosphatase Troponin I Total Protein Albumin Globulin Albumin/Globulin Ratio Vitamin B12 Folate MRSA (PCR) Negative 04/19/19 04/19/19 04/19/19 03:20 03:20 03:20 WBC 8.8 RBC 2.82 L Hgb 8.8 L Hct 28.0 L MCV 99.3 H MCH 31.2 MCHC 31.4 L RDW Std Deviation 62.2 H RDW Coeff of Tanner 17.3 H Plt Count 185 MPV 10.4 Immature Gran % (Auto) 0.200 Neut % (Auto) 78.4 H Lymph % (Auto) 14.4 L [place] % (Auto) 6.0 Eos % (Auto) 0.9 Baso % (Auto) 0.1 Absolute Neuts (auto) 6.9 Absolute Lymphs (auto) 1.27 Nucleated RBC % 0.3 PT INR APTT Specimen Type Sample Site pH Bicarbonate Actual POC Total CO2 Base Excess O2 Saturation O2 % ABG pCO2 ABG pO2 Jose David Test Respiration Rate O2 Delivery Device EPAP IPAP Blood Gas Notified Whom Blood Gas Notified Time Sodium 138 Potassium 4.7 Chloride 97 L Carbon Dioxide 31.0 Anion Gap 10 BUN 38 H Creatinine 5.83 H Estim Creat Clear Calc 9.03 Est GFR (MDRD) Af Amer 9 L Est GFR (MDRD) Non-Af 8 L BUN/Creatinine Ratio 6.5 L Glucose 69 L Lactic Acid Calcium 8.2 L Iron TIBC Iron Saturation Total Bilirubin AST ALT Alkaline Phosphatase Troponin I Total Protein Albumin Globulin Albumin/Globulin Ratio Vitamin B12 399 Folate MRSA (PCR) 04/19/19 03:20 WBC RBC Hgb Hct MCV MCH MCHC RDW Std Deviation RDW Coeff of Tanner Plt Count MPV Immature Gran % (Auto) Neut % (Auto) Lymph % (Auto) [place] % (Auto) Eos % (Auto) Baso % (Auto) Absolute Neuts (auto) Absolute Lymphs (auto) Nucleated RBC % PT INR APTT Specimen Type Sample Site pH Bicarbonate Actual POC Total CO2 Base Excess O2 Saturation O2 % ABG pCO2 ABG pO2 Jose David Test Respiration Rate O2 Delivery Device EPAP IPAP Blood Gas Notified Whom Blood Gas Notified Time Sodium Potassium Chloride Carbon Dioxide Anion Gap BUN Creatinine Estim Creat Clear Calc Est GFR (MDRD) Af Amer Est GFR (MDRD) Non-Af BUN/Creatinine Ratio Glucose Lactic Acid Calcium Iron 51 TIBC 160 L Iron Saturation 31.9 Total Bilirubin AST ALT Alkaline Phosphatase Troponin I Total Protein Albumin Globulin Albumin/Globulin Ratio Vitamin B12 Folate 32.30 MRSA (PCR) POC Glucose 04/19/19 04/19/19 04/19/19 11:33 08:21 03:56 POC Glucose 148 H 157 H 91 04/19/19 04/18/19 04/18/19 03:15 22:06 18:47 POC Glucose 63 L 398 H 384 H Assessment/Plan All Active Problems Sepsis with acute hypoxic respiratory failure (Acute) Pneumonia (Acute) Sepsis (Acute) ESRD (end stage renal disease) (Acute) ESRD. HD today. d/w staff. see orders. dyspnea. ? pneumonia vs ILD. feels better already, wants to go home. ok to dc from renal standpoint
--- NOTE | 2019-04-19 13:35 | DS.PCM_ITS ---
<Silverio Kolb - Last Filed: 04/19/19 15:08> Discharge Date and Diagnosis - Problem List Patient Problems: Active and Suspected Problems Sepsis with acute hypoxic respiratory failure (Acute) Pneumonia (Acute) Sepsis (Acute) ESRD (end stage renal disease) (Acute) Tachycardia (Acute) - Primary Discharge Diagnosis Active and Suspected Problems Sepsis with acute hypoxic respiratory failure (Acute) Pneumonia (Acute) Sepsis (Acute) ESRD (end stage renal disease) (Acute) Tachycardia (Acute) - Secondary Discharge Diagnosis Chronic Problems COPD (chronic obstructive pulmonary disease) (Chronic) CHF (congestive heart failure) (Chronic) CKD (chronic kidney disease) requiring chronic dialysis (Chronic) Hospital Course and Treatment Summary of Care Provided: This patient was seen in conjunction with Ananda ZEE. I have independently interviewed and examined the patient and reviewed pertinent history, examination findings, laboratory and plan of management. I have reviewed the note and agree with the documented findings with the few additional points. In brief, patient is admitted for sudden onset of severe shortness of breath which improved on Lasix and BiPAP. Patient also has history of ESRD and gets dialysis in [place]. Initially there was concern of pneumonia with chest x-ray showing infiltrate but patient does not have fever, leukocytosis and overall, quick, overnight resolution of shortness of breath on BiPAP with Lasix points more to pulmonary edema rather than pneumonia. Chest x-ray shows groundglass opacity and mosaic pattern in both lower lobes, worsening in right lower lobe. The radiological diagnosis of extensive bladder is throughout the right lung, pattern was suggestive of interstitial lung disease/or extensive COPD. P ulmonologist was consulted. It appears that patient has never had pulmonary consult or office visit in the past. She was advised outpatient PFT, echo and further evaluation. Patient has chronic hypoxic respiratory failure on 2 L of oxygen and CPAP at home. [employer] was consulted for dialysis and she is undergoing dialysis. Patient was also elevated but last one is 121/59 on dialysis. He also had decrease in hemoglobin 8.8 from 11.5. It seems mainly is due to fluid shift. Discharge medication reconciliation done. Discharge follow-up instructions completed. Discharge process discussed with the patient and all questions were answered to patient's satisfaction. Total time spent, exact 35 minutes on discharge meds reconciliation, examination, review of imaging and blood test and discussion with the patient on follow-up instructions. I have discussed my assessment with Ananda ZEE and orders have been reviewed. Patient was admitted as inpatient but was discharged because of sooner recovery than expected on BiPAP, diuretic and hemodialysis. Patient wants to go home. [] Clinical Impression(s) from Imaging Studies Chest X-Ray 04/18/19 18:40 IMPRESSION: Hazy right lower lobe infiltrates most consistent with acute pneumonia. Electronically Signed: Edgardo Mcneil MD at 19:16 EDT Tel , Service support , Chest CTA 04/18/19 19:56 IMPRESSION: No pulmonary embolus. Extensive alveolitis throughout the right lung. 7 mm left lower lobe nodule. Based on the 2017 Fleischner Society Guidelines for Management of Incidentally Detected Pulmonary Nodules, for a single solid lung nodule 6-8mm in size: * If patient is considered low risk for developing lung cancer, follow-up CT at 6-12 months is recommended, then consider CT at 18-24 months. * If patient is considered high risk, follow-up CT at 6-12 months is recommended, then again at 18-24 months. Patient Problems: Active and Suspected Problems Sepsis with acute hypoxic respiratory failure (Acute) Pneumonia (Acute) Sepsis (Acute) ESRD (end stage renal disease) (Acute) Tachycardia (Acute) Subjective: Patient found improvement in shortness of breath after Lasix and BiPAP. She was found hypoxic by EMS. Patient had CT chest after she was found right lower lobe infiltrate on x-ray. Earlier patient was admitted with sudden onset of shortness of breath as per ER. Blood pressure was elevated in the morning. Last blood pressure 121/59. Patient was also very tachypneic and hypoxic in the ER. Pulse ox was 89 on CPAP as per EMS. Respiratory rate more than 40. Blood pressure was 210/86. Subsequently patient was put on BiPAP and her shortness of breath improved - Physical Exam General: Alert, Oriented x3, Cooperative HEENT: Atraumatic, PERRLA, EOMI, Normocephalic Neck: Supple, No JVD, Negative Carotid Bruits Lungs: No rhonchi, No wheeze, No rales, Diminished Cardiovascular: Regular rate, No murmurs Abdomen: Bowel Sounds Present, Soft, Non Tender, Non-Distended Extremities: No edema, Capillary Refill Less than 3 Seconds, Edema Skin: No rashes, No breakdown Musculoskeletal: No Tenderness to Palpation of Joints or Extremities, Arthritic Changes Neurological: Cranial nerves II-XII grossly intact, Deep Tendon Reflexes 2+/4 and Symmetrical, Neuro grossly intact Psych/Mental Status: Normal Affect, Appropriate Vital Signs Temp Pulse Resp BP Pulse Ox 98.9 F 82 16 172/56 H 96 04/19/19 08:49 04/19/19 08:49 04/19/19 08:49 04/19/19 08:49 04/19/19 11:39 Oxygen Flow Rate (L/min) 2 Oxygen Delivery Method Nasal Cannula Weight: 151 lb 7.321 oz Body Mass Index (BMI) 30.5 Intake and Output for Last 24 Hours 04/17/19 04/18/19 04/19/19 23:59 23:59 23:59 Intake Total 520 / 520 710 / 710 Output Total 50 / 50 Balance 470 / 470 710 / 710 Microbiology Past 72 Hours 04/18/19 22:50 Streptococcus pneumoniae Antigen (M - Final Urine, Clean Catch 04/18/19 22:50 Legionella Antigen - Final Urine, Clean Catch Laboratory Tests Past 24 Hrs 04/18/19 04/18/19 04/18/19 18:30 18:30 18:30 WBC 9.1 RBC 3.68 L Hgb 11.5 L Hct 36.9 L MCV 100.3 H MCH 31.3 MCHC 31.2 L RDW Std Deviation 63.6 H RDW Coeff of Tanner 17.3 H Plt Count 285 MPV 10.9 Immature Gran % (Auto) 1.100 H Neut % (Auto) 70.2 H Lymph % (Auto) 20.5 [place] % (Auto) 5.8 Eos % (Auto) 2.2 Baso % (Auto) 0.2 Absolute Neuts (auto) 6.4 Absolute Lymphs (auto) 1.86 Nucleated RBC % 0.3 PT 13.3 INR 1.0 APTT 25.1 Specimen Type Sample Site pH Bicarbonate Actual POC Total CO2 Base Excess O2 Saturation O2 % ABG pCO2 ABG pO2 Jose David Test Respiration Rate O2 Delivery Device EPAP IPAP Blood Gas Notified Whom Blood Gas Notified Time Sodium 135 L Potassium 4.9 Chloride 96 L Carbon Dioxide 29.0 Anion Gap 10 BUN 32 H Creatinine 5.42 H Estim Creat Clear Calc 6.44 Est GFR (MDRD) Af Amer 10 L Est GFR (MDRD) Non-Af 8 L BUN/Creatinine Ratio 5.9 L Glucose 366 H Lactic Acid Calcium 8.7 Iron TIBC Iron Saturation Total Bilirubin 0.40 AST 23 ALT 21 Alkaline Phosphatase 157 H Troponin I < 0.015 Total Protein 7.5 Albumin 3.6 Globulin 3.9 Albumin/Globulin Ratio 0.9 Vitamin B12 Folate MRSA (PCR) 04/18/19 04/18/19 04/18/19 18:55 19:02 22:25 WBC RBC Hgb Hct MCV MCH MCHC RDW Std Deviation RDW Coeff of Tanner Plt Count MPV Immature Gran % (Auto) Neut % (Auto) Lymph % (Auto) [place] % (Auto) Eos % (Auto) Baso % (Auto) Absolute Neuts (auto) Absolute Lymphs (auto) Nucleated RBC % PT INR APTT Specimen Type ART Sample Site R Radial pH 7.42 Bicarbonate Actual 29.2 H POC Total CO2 30 Base Excess 5 H O2 Saturation 95 O2 % 50 ABG pCO2 44.6 ABG pO2 74 L Jose David Test POS Respiration Rate 14 O2 Delivery Device Bi / C PAP EPAP 6 IPAP 14 Blood Gas Notified Whom ED Blood Gas Notified Time 1900 Sodium Potassium Chloride Carbon Dioxide Anion Gap BUN Creatinine Estim Creat Clear Calc Est GFR (MDRD) Af Amer Est GFR (MDRD) Non-Af BUN/Creatinine Ratio Glucose Lactic Acid 1.2 Calcium Iron TIBC Iron Saturation Total Bilirubin AST ALT Alkaline Phosphatase Troponin I Total Protein Albumin Globulin Albumin/Globulin Ratio Vitamin B12 Folate MRSA (PCR) Negative 04/19/19 04/19/19 04/19/19 03:20 03:20 03:20 WBC 8.8 RBC 2.82 L Hgb 8.8 L Hct 28.0 L MCV 99.3 H MCH 31.2 MCHC 31.4 L RDW Std Deviation 62.2 H RDW Coeff of Tanner 17.3 H Plt Count 185 MPV 10.4 Immature Gran % (Auto) 0.200 Neut % (Auto) 78.4 H Lymph % (Auto) 14.4 L [place] % (Auto) 6.0 Eos % (Auto) 0.9 Baso % (Auto) 0.1 Absolute Neuts (auto) 6.9 Absolute Lymphs (auto) 1.27 Nucleated RBC % 0.3 PT INR APTT Specimen Type Sample Site pH Bicarbonate Actual POC Total CO2 Base Excess O2 Saturation O2 % ABG pCO2 ABG pO2 Jose David Test Respiration Rate O2 Delivery Device EPAP IPAP Blood Gas Notified Whom Blood Gas Notified Time Sodium 138 Potassium 4.7 Chloride 97 L Carbon Dioxide 31.0 Anion Gap 10 BUN 38 H Creatinine 5.83 H Estim Creat Clear Calc 9.03 Est GFR (MDRD) Af Amer 9 L Est GFR (MDRD) Non-Af 8 L BUN/Creatinine Ratio 6.5 L Glucose 69 L Lactic Acid Calcium 8.2 L Iron TIBC Iron Saturation Total Bilirubin AST ALT Alkaline Phosphatase Troponin I Total Protein Albumin Globulin Albumin/Globulin Ratio Vitamin B12 399 Folate MRSA (PCR) 04/19/19 03:20 WBC RBC Hgb Hct MCV MCH MCHC RDW Std Deviation RDW Coeff of Tanner Plt Count MPV Immature Gran % (Auto) Neut % (Auto) Lymph % (Auto) [place] % (Auto) Eos % (Auto) Baso % (Auto) Absolute Neuts (auto) Absolute Lymphs (auto) Nucleated RBC % PT INR APTT Specimen Type Sample Site pH Bicarbonate Actual POC Total CO2 Base Excess O2 Saturation O2 % ABG pCO2 ABG pO2 Jose David Test Respiration Rate O2 Delivery Device EPAP IPAP Blood Gas Notified Whom Blood Gas Notified Time Sodium Potassium Chloride Carbon Dioxide Anion Gap BUN Creatinine Estim Creat Clear Calc Est GFR (MDRD) Af Amer Est GFR (MDRD) Non-Af BUN/Creatinine Ratio Glucose Lactic Acid Calcium Iron 51 TIBC 160 L Iron Saturation 31.9 Total Bilirubin AST ALT Alkaline Phosphatase Troponin I Total Protein Albumin Globulin Albumin/Globulin Ratio Vitamin B12 Folate 32.30 MRSA (PCR) POC Glucose 04/19/19 04/19/19 04/19/19 11:33 08:21 03:56 POC Glucose 148 H 157 H 91 04/19/19 04/18/19 04/18/19 03:15 22:06 18:47 POC Glucose 63 L 398 H 384 H Home Medications: Medications to take at Discharge Acetaminophen [Tylenol] 650 mg PO BID 04/18/19 Albuterol IH (ProAir) [Proair Hfa] 1 - 2 puff INHALATION Q6H PRN PRN 04/18/19 Budesonide/Formoterol 160/4.5 [Symbicort 160/4.5 Mcg Inhaler (SP)] 2 puff INHALATION BID PRN 04/18/19 Calcium Acetate [Phoslo Gel Cap] 667 mg PO TIDCM 04/18/19 Clonidine HCl [Catapres] 0.1 mg PO BID 04/18/19 DiphenhydrAMINE [Benadryl] 25 mg PO BID 04/18/19 Docusate Sodium [Colace] 100 mg PO BID 04/18/19 Furosemide [Lasix] 80 mg PO DAILY 04/18/19 Insulin Glargine,Hum.rec.anlog [Lantus] 16 unit SQ QHS 04/18/19 Insulin Lispro [Humalog] 0 unit SQ ACHS 04/18/19 Insulin Lispro [Humalog] 6 unit SQ TIDCM 04/18/19 Nifedipine [Nifedipine ER] 30 mg PO DAILY 04/18/19 Omeprazole 40 mg PO DAILY 04/18/19 Pravastatin [Pravachol] 20 mg PO QHS 04/18/19 Sevelamer HCl [Renagel] 1,600 mg PO TIDCM 04/18/19 Iron Polysaccharide Complex [Ferrex 150] 150 mg PO DAILY #30 cap 04/19/19 Following Prescrptions Were Given to Patient: Iron Polysaccharide Complex [Ferrex 150] 150 mg PO DAILY #30 cap Prescription Printed Primary Care Physician: Evelio Carranza Chi, MD [Primary Care Provider] - Code Visit Inpatient E&M: [id number] Disch Hosp <Ananda Brock - Last Filed: 04/19/19 15:26> Discharge Date and Diagnosis Date of Admission: 04/18/19 Date of Discharge: 04/19/19 - Primary Discharge Diagnosis Active and Suspected Problems Sepsis and pneumonia ruled out Acute hypoxic respiratory failure 2/2 acute on chronic diastolic CHF 2/2 volume overload. Pulmonary nodule VALERIO on CPAP at home Nicotine abuse COPD Chronic diastolic CHF ESRD Iron def anemia Dmt2 HTN - Secondary Discharge Diagnosis Chronic Problems COPD (chronic obstructive pulmonary disease) (Chronic) CHF (congestive heart failure) (Chronic) CKD (chronic kidney disease) requiring chronic dialysis (Chronic) Hospital Course and Treatment Imaging Results: RAD/Chest 1 View (Portable) IMPRESSION: Hazy right lower lobe infiltrates most consistent with acute pneumonia. CT/CTA Chest W/WO Contrast IMPRESSION: No pulmonary embolus. Extensive alveolitis throughout the right lung. 7 mm left lower lobe nodule. Based on the 2017 Fleischner Society Guidelines for Management of Incidentally Detected Pulmonary Nodules, for a single solid lung nodule 6-8mm in size: * If patient is considered low risk for developing lung cancer, follow-up CT at 6-12 months is recommended, then consider CT at 18-24 months. * If patient is considered high risk, follow-up CT at 6-12 months is recommended, then again at 18-24 months. Consults: Yunior - pulmonary medicine Mil - nephrology Operations: None Procedures: Dialysis Summary of Care Provided: Hospital Course: The patient is a 74 year old F with pmhx as above who presented to the ER with c /o a sudden onset of SOB about an hour before coming to the ER. She had no fevers/chills or cough. She felt that it was similar to a prior episode where not enough fluid was removed during dialysis. She was brought to the ER and placed on Bipap. She appeared in distress, and had tachycardia and tachypnea. CXR showed possible infiltrates. No fever/leuckocytosis. She was started on IV abx for presumptive pna. She did well overnight and felt back to her baseline the following morning. CTA was obtained and showed a pulmonary nodule that will need follow up and extensive right lung alveolitis. She was able to ambulate around the unit without O2. She had no cough, fever, or chills. She was provided with dialysis. Pulmonary medicine was consulted regarding her CTA findings. Pulmonary felt her current situation was most likely CHF and that fluid removal with dialysis was appropriate. She was discharged home in stable condition. She will need to follow up with her PCP in 1-2 weeks, Nephrology as directed, and with pulmonology in 2 weeks. This patient was seen by Ananda Brock PA-C under the supervision of Dr. Kolb. [] - Physical Exam General: Alert, Oriented x3, Cooperative HEENT: Atraumatic, PERRLA, EOMI, Normocephalic Neck: Supple, No JVD, Negative Carotid Bruits Lungs: Diminished Cardiovascular: Regular rate, No murmurs Abdomen: Bowel Sounds Present, Soft, Non Tender Extremities: No edema, Capillary Refill Less than 3 Seconds Skin: No rashes, No breakdown Musculoskeletal: No Tenderness to Palpation of Joints or Extremities Neurological: Cranial nerves II-XII grossly intact Psych/Mental Status: Normal Affect, Appropriate, Alert and oriented to time, place, person, mood and affect Vital Signs Temp Pulse Resp BP Pulse Ox 98.9 F 82 16 172/56 H 96 04/19/19 08:49 04/19/19 08:49 04/19/19 08:49 04/19/19 08:49 04/19/19 11:39 Oxygen Flow Rate (L/min) 2 Oxygen Delivery Method Nasal Cannula Weight: 151 lb 7.321 oz Body Mass Index (BMI) 30.5 Intake and Output for Last 24 Hours 04/17/19 04/18/19 04/19/19 23:59 23:59 23:59 Intake Total 520 / 520 710 / 710 Output Total 50 / 50 Balance 470 / 470 710 / 710 Microbiology Past 72 Hours 04/18/19 22:50 Streptococcus pneumoniae Antigen (M - Final Urine, Clean Catch 04/18/19 22:50 Legionella Antigen - Final Urine, Clean Catch Laboratory Tests Past 24 Hrs 04/18/19 04/18/19 04/18/19 18:30 18:30 18:30 WBC 9.1 RBC 3.68 L Hgb 11.5 L Hct 36.9 L MCV 100.3 H MCH 31.3 MCHC 31.2 L RDW Std Deviation 63.6 H RDW Coeff of Tanner 17.3 H Plt Count 285 MPV 10.9 Immature Gran % (Auto) 1.100 H Neut % (Auto) 70.2 H Lymph % (Auto) 20.5 [place] % (Auto) 5.8 Eos % (Auto) 2.2 Baso % (Auto) 0.2 Absolute Neuts (auto) 6.4 Absolute Lymphs (auto) 1.86 Nucleated RBC % 0.3 PT 13.3 INR 1.0 APTT 25.1 Specimen Type Sample Site pH Bicarbonate Actual POC Total CO2 Base Excess O2 Saturation O2 % ABG pCO2 ABG pO2 Jose David Test Respiration Rate O2 Delivery Device EPAP IPAP Blood Gas Notified Whom Blood Gas Notified Time Sodium 135 L Potassium 4.9 Chloride 96 L Carbon Dioxide 29.0 Anion Gap 10 BUN 32 H Creatinine 5.42 H Estim Creat Clear Calc 6.44 Est GFR (MDRD) Af Amer 10 L Est GFR (MDRD) Non-Af 8 L BUN/Creatinine Ratio 5.9 L Glucose 366 H Lactic Acid Calcium 8.7 Iron TIBC Iron Saturation Total Bilirubin 0.40 AST 23 ALT 21 Alkaline Phosphatase 157 H Troponin I < 0.015 Total Protein 7.5 Albumin 3.6 Globulin 3.9 Albumin/Globulin Ratio 0.9 Vitamin B12 Folate MRSA (PCR) 04/18/19 04/18/19 04/18/19 18:55 19:02 22:25 WBC RBC Hgb Hct MCV MCH MCHC RDW Std Deviation RDW Coeff of Tanner Plt Count MPV Immature Gran % (Auto) Neut % (Auto) Lymph % (Auto) [place] % (Auto) Eos % (Auto) Baso % (Auto) Absolute Neuts (auto) Absolute Lymphs (auto) Nucleated RBC % PT INR APTT Specimen Type ART Sample Site R Radial pH 7.42 Bicarbonate Actual 29.2 H POC Total CO2 30 Base Excess 5 H O2 Saturation 95 O2 % 50 ABG pCO2 44.6 ABG pO2 74 L Jose David Test POS Respiration Rate 14 O2 Delivery Device Bi / C PAP EPAP 6 IPAP 14 Blood Gas Notified Whom ED MD Blood Gas Notified Time 1900 Sodium Potassium Chloride Carbon Dioxide Anion Gap BUN Creatinine Estim Creat Clear Calc Est GFR (MDRD) Af Amer Est GFR (MDRD) Non-Af BUN/Creatinine Ratio Glucose Lactic Acid 1.2 Calcium Iron TIBC Iron Saturation Total Bilirubin AST ALT Alkaline Phosphatase Troponin I Total Protein Albumin Globulin Albumin/Globulin Ratio Vitamin B12 Folate MRSA (PCR) Negative 04/19/19 04/19/19 04/19/19 03:20 03:20 03:20 WBC 8.8 RBC 2.82 L Hgb 8.8 L Hct 28.0 L MCV 99.3 H MCH 31.2 MCHC 31.4 L RDW Std Deviation 62.2 H RDW Coeff of Tanner 17.3 H Plt Count 185 MPV 10.4 Immature Gran % (Auto) 0.200 Neut % (Auto) 78.4 H Lymph % (Auto) 14.4 L [place] % (Auto) 6.0 Eos % (Auto) 0.9 Baso % (Auto) 0.1 Absolute Neuts (auto) 6.9 Absolute Lymphs (auto) 1.27 Nucleated RBC % 0.3 PT INR APTT Specimen Type Sample Site pH Bicarbonate Actual POC Total CO2 Base Excess O2 Saturation O2 % ABG pCO2 ABG pO2 Jose David Test Respiration Rate O2 Delivery Device EPAP IPAP Blood Gas Notified Whom Blood Gas Notified Time Sodium 138 Potassium 4.7 Chloride 97 L Carbon Dioxide 31.0 Anion Gap 10 BUN 38 H Creatinine 5.83 H Estim Creat Clear Calc 9.03 Est GFR (MDRD) Af Amer 9 L Est GFR (MDRD) Non-Af 8 L BUN/Creatinine Ratio 6.5 L Glucose 69 L Lactic Acid Calcium 8.2 L Iron TIBC Iron Saturation Total Bilirubin AST ALT Alkaline Phosphatase Troponin I Total Protein Albumin Globulin Albumin/Globulin Ratio Vitamin B12 399 Folate MRSA (PCR) 04/19/19 03:20 WBC RBC Hgb Hct MCV MCH MCHC RDW Std Deviation RDW Coeff of Tanner Plt Count MPV Immature Gran % (Auto) Neut % (Auto) Lymph % (Auto) [place] % (Auto) Eos % (Auto) Baso % (Auto) Absolute Neuts (auto) Absolute Lymphs (auto) Nucleated RBC % PT INR APTT Specimen Type Sample Site pH Bicarbonate Actual POC Total CO2 Base Excess O2 Saturation O2 % ABG pCO2 ABG pO2 Jose David Test Respiration Rate O2 Delivery Device EPAP IPAP Blood Gas Notified Whom Blood Gas Notified Time Sodium Potassium Chloride Carbon Dioxide Anion Gap BUN Creatinine Estim Creat Clear Calc Est GFR (MDRD) Af Amer Est GFR (MDRD) Non-Af BUN/Creatinine Ratio Glucose Lactic Acid Calcium Iron 51 TIBC 160 L Iron Saturation 31.9 Total Bilirubin AST ALT Alkaline Phosphatase Troponin I Total Protein Albumin Globulin Albumin/Globulin Ratio Vitamin B12 Folate 32.30 MRSA (PCR) POC Glucose 04/19/19 04/19/19 04/19/19 11:33 08:21 03:56 POC Glucose 148 H 157 H 91 04/19/19 04/18/19 04/18/19 03:15 22:06 18:47 POC Glucose 63 L 398 H 384 H Discharge Diet: Renal Diet Discharge Activity: Return to Normal Activity Please follow up with your Primary Care Physician in: 2 weeks Please Follow Up With: Audra Soliz NP-C When: 2 weeks Please Follow Up With: Nephrology When: As directed Disposition: Home Minutes spent on discharge:: 35 Patient Condition:: Stable Medical Necessity - Tobacco Use Smoking Status: Former smoker Tobacco Use: Cigarettes Meaningful Use Info Meaningful Use Diagnoses (Choose all that apply): None applicable
--- NOTE | 2019-04-19 14:13 | CHAPLAIN ---
patient is having dialysis and is resting/sleeping; talked with RN about returning and she indicates pt will be discharged after dialysis is completed
--- NOTE | 2019-04-19 14:32 | CON.PCM_ITS ---
Problem List (1) Tachycardia Status: Acute (2) COPD (chronic obstructive pulmonary disease) Status: Chronic (3) CHF (congestive heart failure) Status: Chronic (4) Sepsis Status: Acute (5) ESRD (end stage renal disease) Status: Acute Reason for Consult Date of Consultation: 04/19/19 Reason for Consultation: Abnormal CT scan History of Present Illness: The patient is a 74 year old F, with past medical history listed below, [place] [facility] [place] to shortness of breath and hypoxemia. Patient reportedly had called 911 secondary to shortness of breath. Initial EMS pulse oximetry showed 67% on baseline 2 L nasal cannula oxygen. Patient was placed on CPAP by EMS with improvement to 89% and BiPAP on arrival. Patient does have a history of end-stage renal disease and was given dialysis on the day prior to presentation. Patient stated that she had sudden onset of shortness of breath and no other symptoms. Patient denied any chest discomfort or worsening of chronic lower extremity edema prior to the event. In the ER, patient was noted to have significant improvement while on BiPAP therapy. ABG showed adequate ventilation, but rales were noted on exam. Patient had a CTA of the chest to rule out PE and groundglass opacities were noted. Patient was then admitted to the floor for further evaluation. Over the course of patient's hospitalization, she has improved. Patient is currently being treated with antibiotics. There was some concern as patient is never had a pulmonary evaluation per her report, so a consultation was obtained. Patient reportedly had her oxygen ordered and maintained by her primary care physician. Patient reportedly is on Symbicort, Lasix and albuterol as an outpatient. Patient is unclear if she is ever had pulmonary function tests previously. Patient denies any environmental exposures. Patient states that she feels back to normal by time I evaluated her. Patient reportedly had multiple therapy started in [place]. Patient has not been able to reestablish with pulmonary appears. Patient is not a very good historian about her past medical history and no records are available for review. Review of systems otherwise negative x10 systems. Past Medical History Past Medical History (Chronic Problems): Chronic Problems COPD (chronic obstructive pulmonary disease) (Chronic) CHF (congestive heart failure) (Chronic) CKD (chronic kidney disease) requiring chronic dialysis (Chronic) Allergies haloperidol [From Haldol] Adverse Reaction (Verified 04/18/19 18:28) Unknown ondansetron [From Zofran] Adverse Reaction (Verified 04/18/19 18:28) Vomiting Home Medications: Ambulatory Orders Medication Instructions Recorded Acetaminophen [Tylenol] 650 mg PO BID 04/18/19 Albuterol IH (ProAir) [Proair Hfa] 1 - 2 puff INHALATION Q6H PRN PRN 04/18/19 Budesonide/Formoterol 160/4.5 2 puff INHALATION BID PRN 04/18/19 [Symbicort 160/4.5 Mcg Inhaler (SP)] Calcium Acetate [Phoslo Gel Cap] 667 mg PO TIDCM 04/18/19 Clonidine HCl [Catapres] 0.1 mg PO BID 04/18/19 DiphenhydrAMINE [Benadryl] 25 mg PO BID 04/18/19 Docusate Sodium [Colace] 100 mg PO BID 04/18/19 Furosemide [Lasix] 80 mg PO DAILY 04/18/19 Insulin Glargine,Hum.rec.anlog 16 unit SQ QHS 04/18/19 [Lantus] Insulin Lispro [Humalog] 0 unit SQ ACHS 04/18/19 Insulin Lispro [Humalog] 6 unit SQ TIDCM 04/18/19 Nifedipine [Nifedipine ER] 30 mg PO DAILY 04/18/19 Omeprazole 40 mg PO DAILY 04/18/19 Pravastatin [Pravachol] 20 mg PO QHS 04/18/19 Sevelamer HCl [Renagel] 1,600 mg PO TIDCM 04/18/19 Iron Polysaccharide Complex 150 mg PO DAILY #30 cap 04/19/19 [Ferrex 150] Surgical History: no surgical history Lives: [facility] Smoking Status: Former smoker Tobacco Use: Cigarettes Alcohol: None - *Family History Maternal History Items: Diabetes, Heart Disease - CHF Paternal History Items: - - Patient does not know Review of Systems Comment: See HPI Patient Problems: Active and Suspected Problems Sepsis with acute hypoxic respiratory failure (Acute) Pneumonia (Acute) Sepsis (Acute) ESRD (end stage renal disease) (Acute) Tachycardia (Acute) Objective: CT of the chest was personally reviewed. This does show some interstitial thickening, groundglass opacities. Some peribronchial thickening is appreciated. No mediastinal lymphadenopathy is appreciated. Patient does not have any echocardiogram or pulmonary function tests available for review. - Physical Exam General: Alert, Oriented x3, Cooperative, No apparent distress, Well developed, Well nourished, - - Seen while on hemodialysis HEENT: Atraumatic, PERRLA, EOMI, Normocephalic, - - No scleral icterus or injection noted. Oral: Moist Mucosa, No Gingival or Mucosal Lesions/ Ulcerations Neck: Supple, No JVD, No Nodes, Trachea Midline Lungs: Clear to auscultation, Normal air movement, No rhonchi, No wheeze, No rales Cardiovascular: Regular rate, Regular Rhythm, Normal S1, Normal S2, No murmurs, No rub noted, No Gallop, - - Some external sounds noted from hemodialysis machine Abdomen: Bowel Sounds Present, Soft, Non Tender, Non-Distended Extremities: No clubbing, No cyanosis, Edema, - - Left upper arm fistula Skin: No rashes, No breakdown Musculoskeletal: No Tenderness to Palpation of Joints or Extremities Lymphatic: No Cervical, Supraclavicular, or Inguinal Adenopathy Neurological: Cranial nerves II-XII grossly intact, Neuro grossly intact, Motor Exam 5/5 strength throughout Psych/Mental Status: Alert and oriented to time, place, person, mood and affect Vital Signs Temp Pulse Resp BP Pulse Ox 37.2 C 82 16 172/56 H 96 04/19/19 08:49 04/19/19 08:49 04/19/19 08:49 04/19/19 08:49 04/19/19 11:39 Oxygen Flow Rate (L/min) 2 Oxygen Delivery Method Nasal Cannula Weight: 68.7 kg Body Mass Index (BMI) 30.5 Intake and Output for Last 24 Hours 04/17/19 04/18/19 04/19/19 23:59 23:59 23:59 Intake Total 520 / 520 710 / 710 Output Total 50 / 50 Balance 470 / 470 710 / 710 Microbiology Past 72 Hours 04/18/19 22:50 Streptococcus pneumoniae Antigen (M - Final Urine, Clean Catch 04/18/19 22:50 Legionella Antigen - Final Urine, Clean Catch Laboratory Tests Past 24 Hrs 04/18/19 04/18/19 04/18/19 18:30 18:30 18:30 WBC 9.1 RBC 3.68 L Hgb 11.5 L Hct 36.9 L MCV 100.3 H MCH 31.3 MCHC 31.2 L RDW Std Deviation 63.6 H RDW Coeff of Tanner 17.3 H Plt Count 285 MPV 10.9 Immature Gran % (Auto) 1.100 H Neut % (Auto) 70.2 H Lymph % (Auto) 20.5 Swisher % (Auto) 5.8 Eos % (Auto) 2.2 Baso % (Auto) 0.2 Absolute Neuts (auto) 6.4 Absolute Lymphs (auto) 1.86 Nucleated RBC % 0.3 PT 13.3 INR 1.0 APTT 25.1 Specimen Type Sample Site pH Bicarbonate Actual POC Total CO2 Base Excess O2 Saturation O2 % ABG pCO2 ABG pO2 Jose David Test Respiration Rate O2 Delivery Device EPAP IPAP Blood Gas Notified Whom Blood Gas Notified Time Sodium 135 L Potassium 4.9 Chloride 96 L Carbon Dioxide 29.0 Anion Gap 10 BUN 32 H Creatinine 5.42 H Estim Creat Clear Calc 6.44 Est GFR (MDRD) Af Amer 10 L Est GFR (MDRD) Non-Af 8 L BUN/Creatinine Ratio 5.9 L Glucose 366 H Lactic Acid Calcium 8.7 Iron TIBC Iron Saturation Total Bilirubin 0.40 AST 23 ALT 21 Alkaline Phosphatase 157 H Troponin I < 0.015 Total Protein 7.5 Albumin 3.6 Globulin 3.9 Albumin/Globulin Ratio 0.9 Vitamin B12 Folate MRSA (PCR) 04/18/19 04/18/19 04/18/19 18:55 19:02 22:25 WBC RBC Hgb Hct MCV MCH MCHC RDW Std Deviation RDW Coeff of Tanner Plt Count MPV Immature Gran % (Auto) Neut % (Auto) Lymph % (Auto) Swisher % (Auto) Eos % (Auto) Baso % (Auto) Absolute Neuts (auto) Absolute Lymphs (auto) Nucleated RBC % PT INR APTT Specimen Type ART Sample Site R Radial pH 7.42 Bicarbonate Actual 29.2 H POC Total CO2 30 Base Excess 5 H O2 Saturation 95 O2 % 50 ABG pCO2 44.6 ABG pO2 74 L Jose David Test POS Respiration Rate 14 O2 Delivery Device Bi / C PAP EPAP 6 IPAP 14 Blood Gas Notified Whom ED Blood Gas Notified Time 1900 Sodium Potassium Chloride Carbon Dioxide Anion Gap BUN Creatinine Estim Creat Clear Calc Est GFR (MDRD) Af Amer Est GFR (MDRD) Non-Af BUN/Creatinine Ratio Glucose Lactic Acid 1.2 Calcium Iron TIBC Iron Saturation Total Bilirubin AST ALT Alkaline Phosphatase Troponin I Total Protein Albumin Globulin Albumin/Globulin Ratio Vitamin B12 Folate MRSA (PCR) Negative 04/19/19 04/19/19 04/19/19 03:20 03:20 03:20 WBC 8.8 RBC 2.82 L Hgb 8.8 L Hct 28.0 L MCV 99.3 H MCH 31.2 MCHC 31.4 L RDW Std Deviation 62.2 H RDW Coeff of Tanner 17.3 H Plt Count 185 MPV 10.4 Immature Gran % (Auto) 0.200 Neut % (Auto) 78.4 H Lymph % (Auto) 14.4 L Swisher % (Auto) 6.0 Eos % (Auto) 0.9 Baso % (Auto) 0.1 Absolute Neuts (auto) 6.9 Absolute Lymphs (auto) 1.27 Nucleated RBC % 0.3 PT INR APTT Specimen Type Sample Site pH Bicarbonate Actual POC Total CO2 Base Excess O2 Saturation O2 % ABG pCO2 ABG pO2 Jose David Test Respiration Rate O2 Delivery Device EPAP IPAP Blood Gas Notified Whom Blood Gas Notified Time Sodium 138 Potassium 4.7 Chloride 97 L Carbon Dioxide 31.0 Anion Gap 10 BUN 38 H Creatinine 5.83 H Estim Creat Clear Calc 9.03 Est GFR (MDRD) Af Amer 9 L Est GFR (MDRD) Non-Af 8 L BUN/Creatinine Ratio 6.5 L Glucose 69 L Lactic Acid Calcium 8.2 L Iron TIBC Iron Saturation Total Bilirubin AST ALT Alkaline Phosphatase Troponin I Total Protein Albumin Globulin Albumin/Globulin Ratio Vitamin B12 399 Folate MRSA (PCR) 04/19/19 03:20 WBC RBC Hgb Hct MCV MCH MCHC RDW Std Deviation RDW Coeff of Tanner Plt Count MPV Immature Gran % (Auto) Neut % (Auto) Lymph % (Auto) Swisher % (Auto) Eos % (Auto) Baso % (Auto) Absolute Neuts (auto) Absolute Lymphs (auto) Nucleated RBC % PT INR APTT Specimen Type Sample Site pH Bicarbonate Actual POC Total CO2 Base Excess O2 Saturation O2 % ABG pCO2 ABG pO2 Jose David Test Respiration Rate O2 Delivery Device EPAP IPAP Blood Gas Notified Whom Blood Gas Notified Time Sodium Potassium Chloride Carbon Dioxide Anion Gap BUN Creatinine Estim Creat Clear Calc Est GFR (MDRD) Af Amer Est GFR (MDRD) Non-Af BUN/Creatinine Ratio Glucose Lactic Acid Calcium Iron 51 TIBC 160 L Iron Saturation 31.9 Total Bilirubin AST ALT Alkaline Phosphatase Troponin I Total Protein Albumin Globulin Albumin/Globulin Ratio Vitamin B12 Folate 32.30 MRSA (PCR) POC Glucose 04/19/19 04/19/19 04/19/19 11:33 08:21 03:56 POC Glucose 148 H 157 H 91 04/19/19 04/18/19 04/18/19 03:15 22:06 18:47 POC Glucose 63 L 398 H 384 H Clinical Impression(s) from Imaging Studies Chest X-Ray 04/18/19 18:40 IMPRESSION: Hazy right lower lobe infiltrates most consistent with acute pneumonia. Electronically Signed: Edgardo Mcneil MD at 19:16 EDT Tel , Service support , Chest CTA 04/18/19 19:56 IMPRESSION: No pulmonary embolus. Extensive alveolitis throughout the right lung. 7 mm left lower lobe nodule. Based on the 2017 Fleischner Society Guidelines for Management of Incidentally Detected Pulmonary Nodules, for a single solid lung nodule 6-8mm in size: * If patient is considered low risk for developing lung cancer, follow-up CT at 6-12 months is recommended, then consider CT at 18-24 months. * If patient is considered high risk, follow-up CT at 6-12 months is recommended, then again at 18-24 months. Electronically Signed: Shravan Little MD at 20:58 EDT Tel , Service support , Assessment/Plan All Active Problems Sepsis with acute hypoxic respiratory failure (Acute) Pneumonia (Acute) Sepsis (Acute) ESRD (end stage renal disease) (Acute) Tachycardia (Acute) RECOMMENDATIONS: 1. Okay to discharge from my perspective 2. Fluid removal with hemodialysis 3. Consider outpatient echocardiogram, walking oximetry and complete PFT 4. No change in medications for now 5. Follow-up with nurse practitioner 2 weeks after discharge IMPRESSIONS: 1. Acute on chronic hypoxic respiratory failure secondary to probable acute on chronic diastolic congestive heart failure Patient with rapid recovery after normalization of heart rate and BiPAP therapy is suggestive of flash pulmonary edema secondary to acute on chronic diastolic congestive heart failure from tachycardia. Alveolitis or diffuse alveolar damage would be expected to have a more protracted hospital course. Patient currently is on room air. Likely okay to discharge from my perspective. Patient should follow-up with us as an outpatient. We can obtain complete pulmonary function test, echocardiogram and walking oximetry. Repeat CT scan may be necessary if these are abnormal. Dialysis is planning removal of 3.7 L, which should be helpful. 2. Reported COPD No wheezing noted on my exam. Unclear if patient truly has COPD, but does have a smoking history. Outpatient pulmonary function test would be appropriate. Okay to continue with baseline medications for now until further information is available. 3. Diabetes mellitus/hypertension/end-stage renal disease Complicates care, management, recovery and prognosis. Okay to continue with baseline medications from my perspective. Code Visit Inpatient E&M: 54614 Init Hosp L2
== END 2019-04-19 15:51 | disposition home or self-care (01) | DRG 291 ==
LOC: ED 20:02 → ICU 04-19 02:01 → PCU 04-19 05:47 → ICU 04-19 09:30 → PCU 04-19 09:31
PROVIDERS: Physician Assistant; Admitting Provider Hospitalist; Emergency Provider Emergency Medicine; Family Provider Family Medicine Geriatric Medicine; PCP Family Medicine Geriatric Medicine; Referring Provider Hospitalist; Visit Provider Internal Medicine
DX: I13.2 Hypertensive heart and chronic kidney disease with heart failure and with stage 5 chronic kidney disease, or end stage renal disease (principal); J96.21 Acute and chronic respiratory failure with hypoxia; N18.6 End stage renal disease; I50.33 Acute on chronic diastolic (congestive) heart failure; E11.22 Type 2 diabetes mellitus with diabetic chronic kidney disease; Z99.2 Dependence on renal dialysis; Z99.81 Dependence on supplemental oxygen; G47.33 Obstructive sleep apnea (adult) (pediatric); R91.1 Solitary pulmonary nodule; D50.9 Iron deficiency anemia, unspecified; J44.9 Chronic obstructive pulmonary disease, unspecified; Z79.4 Long term (current) use of insulin; Z72.0 Tobacco use
CPT/HCPCS: 36415; 36600; 71045; 71275; 80048; 80053; 82607; 82746; 82803; 82962; 83540; 83550; 83605; 84484; 85025; 85610; 85730; 87040; 87449; 87641; 90937; 93005; 94002; 94003; 94640; 97162; 97166; 97802; 99251; 99285; 99406; J7030; J7040; J7050; Q9967; A4216; G0257; G0463